=== PATIENT | female | born 1950 | race Caucasian/White ===

== ENCOUNTER 2020-11-12 06:27 | Observation (INO) | payer MEDICARE ==
[~2020-11-12] VITALS: Ht 149.9 cm; Wt 62.6 kg
[2020-11-12] MEDS ORDERED: ONDANSETRON HCL 4 MG/2 ML VIAL ONE (06:58)
[2020-11-12 07:09] LABS: BASOPHILS % (AUTO) 0.3 % (0.0-5.0); HEMATOCRIT 43.5 % (36-48); LYMPHOCYTES % (AUTO) 30.6 % (21.0-51.0); MEAN CORPUSCULAR HEMOGLOBIN 29.3 pg (27.0-33.0); MEAN CORPUSCULAR HGB CONC 33.6 g/dL (32.0-36.0); MEAN CORPUSCULAR VOLUME 87.2 fL (79-99); MONOCYTES % (AUTO) 6.7 % (3.0-13.0); NEUTROPHILS % (AUTO) 62.1 % (40.0-77.0); PLATELET COUNT (AUTO) 217 K/uL (130-400); RED BLOOD CELL COUNT(AUTO) 4.99 MIL/uL (4.00-5.50); RED CELL DISTRIBUTION WIDTH 13.5 % (11.0-15.5); WHITE BLOOD COUNT (AUTO) 3.9 K/uL (4.8-10.8)
[2020-11-12 07:21] LABS: INR 1.1 (0.85-1.15); PROTHROMBIN TIME 11.9 SEC (9.6-11.6)
[2020-11-12 07:23] LABS: PARTIAL THROMBOPLASTIN TIME 27.4 SEC (26.3-35.5)
[2020-11-12 07:42] LABS: ALBUMIN 3.8 g/dL (3.5-5.0); BILIRUBIN,TOTAL 0.6 mg/dL (0.2-1.0); CREATININE 0.8 mg/dL (0.5-1.5)
[2020-11-12 07:47] LABS: POTASSIUM 2.8 mmol/L (3.5-5.1)
[2020-11-12 08:25] LABS: APPEARANCE,URINE Clear (CLEAR); BILIRUBIN,URINE Negative (NEGATIVE); COLOR,URINE Yellow (YELLOW); GLUCOSE, URINE (UA) Negative (NEGATIVE); KETONES,URINE Trace mg/dL (NEGATIVE); LEUKOCYTE ESTERASE ,URINE Negative (NEGATIVE); NITRATE,URINE Negative (NEGATIVE); OCCULT BLOOD,URINE Moderate (NEGATIVE); PROTEIN,URINE POS 1+ mg/dL (NEGATIVE); UROBILINOGEN,URINE 0.2 mg/dL (0.2-1.0)
[2020-11-12 08:43] LABS: BACTERIA,URINE Rare /HPF (None Seen); WBC,URINE None Seen /HPF (0-1)
[2020-11-12] MEDS ORDERED: SODIUM CHLORIDE 0.9% 100 ML IV ONE (09:21)
[2020-11-12] MEDS ORDERED: POTASSIUM CHLORIDE 20MEQ/100ML 100 ML IV ONE (10:03)
[2020-11-12] MEDS ORDERED: LIDOCAINE HCL-MPF 1% 2ML VIAL ONE (10:04)
[2020-11-12] MEDS ORDERED: POTASSIUM CHLORIDE 20MEQ/100ML 100 ML IV PRN (10:45)
[2020-11-12] MEDS ORDERED: ONDANSETRON HCL 4 MG/2 ML VIAL IVP PRN ×2 (10:45→17:27)
[2020-11-12] MEDS ORDERED: CLOTRIMAZOLE 10 MG TROCHE MM SCH (10:45)
[2020-11-12] MEDS ORDERED: POTASSIUM CHLORIDE 20 MEQ ERTAB PO PRN (10:45)
[2020-11-12 10:54] LABS: CRP QUANTITATIVE 37.9 mg/L (0.00-9.0)
[2020-11-12] MEDS ORDERED: CEFTRIAXONE SODIUM 1 GM ONE (11:26)
[2020-11-12] MEDS ORDERED: SODIUM CHLORIDE 0.9% 500ML 500 ML IV ONE (12:04)
[2020-11-12] MEDS ORDERED: FLUCONAZOLE 100 MG TAB PO ONE (14:30)
[2020-11-12 14:40] VITALS: BP 135/60
[2020-11-12] MEDS: CLOTRIMAZOLE 10 MG TROCHE MM SCH ×2 (14:50→16:49)
[2020-11-12] MEDS: ACETAMINOPHEN 325 MG TAB PO PRN (15:59)
[2020-11-12 16:14] VITALS: BP 133/79
[2020-11-12 19:00] VITALS: BP 113/69
[2020-11-12] MEDS: DOXYCYCLINE HYCLATE 100 MG TABLET PO SCH (20:12)
[2020-11-13] VITALS: BP 114/65
[2020-11-13] MEDS: CLOTRIMAZOLE 10 MG TROCHE MM SCH ×3 (00:17→11:09)
[2020-11-13 04:00] VITALS: BP 130/67
[2020-11-13] MEDS: ACETAMINOPHEN 325 MG TAB PO PRN ×2 (05:26→12:50)
[2020-11-13 06:17] LABS: BASOPHILS % (AUTO) 0.2 % (0.0-5.0); EOSINOPHILS % (AUTO) 0.2 % (0.0-8.0); HEMATOCRIT 39.3 % (36-48); MEAN CORPUSCULAR HEMOGLOBIN 29.8 pg (27.0-33.0); MEAN CORPUSCULAR HGB CONC 33.8 g/dL (32.0-36.0); MEAN CORPUSCULAR VOLUME 87.9 fL (79-99); MONOCYTES % (AUTO) 7.6 % (3.0-13.0); NEUTROPHILS % (AUTO) 52.6 % (40.0-77.0); PLATELET COUNT (AUTO) 204 K/uL (130-400); RED BLOOD CELL COUNT(AUTO) 4.47 MIL/uL (4.00-5.50); RED CELL DISTRIBUTION WIDTH 13.6 % (11.0-15.5); WHITE BLOOD COUNT (AUTO) 4.9 K/uL (4.8-10.8)
[2020-11-13 06:30] LABS: CREATININE 0.9 mg/dL (0.5-1.5); CRP QUANTITATIVE 30.9 mg/L (0.00-9.0)
[2020-11-13 06:38] LABS: POTASSIUM 2.8 mmol/L (3.5-5.1)
[2020-11-13] MEDS: POTASSIUM CHLORIDE 10% ELIXIR 20 MEQ/15 ML UDCUP PO PRN ×4 (07:11→14:52)
[2020-11-13] MEDS: DOXYCYCLINE HYCLATE 100 MG TABLET PO SCH (07:58)
[2020-11-13 08:00] VITALS: BP 122/73
[2020-11-13] MEDS ORDERED: ENOXAPARIN SODIUM 40 MG/0.4 ML SYRINGE SQ SCH (09:00)
[2020-11-13] MEDS ORDERED: CEFTRIAXONE SODIUM 1 GM IVP SCH (11:00)
[2020-11-13 12:00] VITALS: BP 130/68
[2020-11-13] MEDS ORDERED: CALC-1009 PO (13:00)
[2020-11-13] MEDS ORDERED: AMLO-257 PO (13:00)
[2020-11-13] MEDS ORDERED: CYAN-35 PO (13:00)
[2020-11-13] MEDS ORDERED: SIMV-43 PO (13:00)
[2020-11-13] MEDS ORDERED: CLOT10TR MM (13:27)
[2020-11-13] MEDS ORDERED: CEFD300C3 PO (13:27)
[2020-11-13 13:49] LABS: CREATININE 0.9 mg/dL (0.5-1.5); POTASSIUM 3.4 mmol/L (3.5-5.1)
== END 2020-11-13 15:00 | disposition home or self-care (01) ==
LOC: EDH 06:27 → EDHIP 10:33 → 2AH 11:44
PROVIDERS: ADMIT Internal Medicine; ATTEND Internal Medicine
DX: U07.1 COVID-19 (principal); J12.82 Pneumonia due to coronavirus disease 2019; E87.6 Hypokalemia; R11.2 Nausea with vomiting, unspecified; E86.0 Dehydration; I10 Essential (primary) hypertension; B37.0 Candidal stomatitis; R63.8 Other symptoms and signs concerning food and fluid intake; K12.30 Oral mucositis (ulcerative), unspecified; Z79.899 Other long term (current) drug therapy; Z88.2 Allergy status to sulfonamides
CPT/HCPCS: 36415 ×2; 74018; 71045; 80048 ×2; 80053; 81001; 82550; 82728 ×2; 83605; 83615 ×2; 83690; 84145 ×2; 84484; 85025 ×2; 85378 ×2; 85610; 85730; 86140 ×2; 87040 ×2; 87426; 87804 ×2; 93005; 96361 ×2; 96365; 96366; 96372; 96375 ×2; 99285; G0378 ×27; J0696 ×2; J1650; J2405 ×2; J3480 ×2; J7040; J3490